=== PATIENT | male | born 1955 | race Caucasian/White ===

== ENCOUNTER → 2016-02-28 | Outpatient (CLI) | payer OTHER ==
[2015-08-11 16:00] VITALS: BP 144/95
[~2016-02-28] MED LIST: ACET-704 PO; ALLO100T PO; ALPR0.5T PO; AMOX500T PO; ATEN25TA PO; CELE200C PO; CETI10TA22 PO; HYDR-971 PO; OMEP10CA PO; OXYC1TAB8 PO; VENL75CA PO
--- NOTE | 2016-02-28 17:07 | KCIC ---
PROCEDURE Three-view right shoulder radiographs 02/28/2016 HISTORY Right shoulder pain for 1 year. FINDINGS AP internal and external rotation and transscapular digital radiographs of the right shoulder were obtained. Moderate degenerative changes are seen involving the right glenohumeral joint and right AC joint. No fracture or dislocation is seen. Small calcified granulomas are seen involving the right lung. 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 No acute osseous abnormality is seen. Electronically signed by: Rey Plascencia MD (Feb 28, 2016 17:06:36)
== END | disposition home or self-care (01) ==
LOC: KCIC 15:22
PROVIDERS: ATTEND Physician Assistant Medical
DX: M25.511 Pain in right shoulder (principal); R54 Age-related physical debility
CPT/HCPCS: 73030

== ENCOUNTER → 2017-06-16 | Outpatient (CLI) | payer OTHER | END | disposition home or self-care (01) | LOC: MRI 11:06 | DX: M48.07 Spinal stenosis, lumbosacral region (principal); M51.35 Other intervertebral disc degeneration, thoracolumbar region; J44.9 Chronic obstructive pulmonary disease, unspecified; I10 Essential (primary) hypertension; E78.00 Pure hypercholesterolemia, unspecified; G43.909 Migraine, unspecified, not intractable, without status migrainosus | CPT/HCPCS: 72148 ==

== ENCOUNTER → 2020-09-13 | Outpatient (CLI) | payer MEDICARE ==
[2015-08-11 16:00] VITALS: BP 144/95
[~2020-09-13] MED LIST changes: -CETI10TA22 PO; +CETI10TA74 PO; +HYDR-3164 PO; -HYDR-971 PO
--- NOTE | 2020-09-13 14:47 | KCIC ---
Examination: Esophagram History: Dysphagia, aspiration COMPARISON: None available Findings/ impression: Esophagram shows normal esophageal motility and distention. There is no stricture, extrinsic compress ion, mass, mucosal defect, gastroesophageal reflux, or hiatal hernia. A 13 mm capsule is swallowed an d passes the GE junction without difficulty. Total fluoroscopic time 1 minute 27 seconds. Total fluoroscopic images 10. Electronically signed by: Edy Morel MD (09/13/2020 2:45 PM) [id number]
== END ==
LOC: KCIC 09:53
PROVIDERS: ATTEND Internal Medicine Gastroenterology
DX: R13.10 Dysphagia, unspecified (principal)
CPT/HCPCS: 74220

== ENCOUNTER → 2020-09-15 | Outpatient (CLI) | payer MEDICARE ==
[2015-08-11 16:00] VITALS: BP 144/95
[~2020-09-15] MED LIST changes: +BARIUM SULFATE 40% (APPLE) 148 GM PWD. PO ONE
--- NOTE | 2020-09-15 15:45 | RAD ---
EXAMINATION: DG VIDEO SWALLOW STUDY 09/15/2020 1:50 PM HISTORY: Dysphagia COMPARISON: None TECHNIQUE: The patient was observed swallowing various consistencies of barium under intermittent flu oroscopy. FINDINGS: Normal swallowing mechanism. No aspiration or penetration with any consistency. Total fluoroscopic time:1 minute. Dose:4.5 mGy. IMPRESSION: Normal modified barium swallow study. Please see the speech pathologist's report for details. Electronically signed by: Bonita Moraes MD (09/15/2020 3:42 PM) [id number]
== END | disposition home or self-care (01) ==
LOC: RAD 13:39
PROVIDERS: ATTEND Internal Medicine Gastroenterology
DX: R13.10 Dysphagia, unspecified (principal); I10 Essential (primary) hypertension; K21.9 Gastro-esophageal reflux disease without esophagitis; M19.90 Unspecified osteoarthritis, unspecified site; M10.9 Gout, unspecified; F32.9 Major depressive disorder, single episode, unspecified; Z79.899 Other long term (current) drug therapy; Z98.890 Other specified postprocedural states; Z72.89 Other problems related to lifestyle; Z88.2 Allergy status to sulfonamides; Z88.8 Allergy status to other drugs, medicaments and biological substances; Z82.49 Family history of ischemic heart disease and other diseases of the circulatory system
CPT/HCPCS: 74230; 92611-GN